=== PATIENT | female | born 1975 | race Two or more races ===

== ENCOUNTER 2017-11-16 12:29 | Observation (INO) | payer OTHER ==
[~2017-11-16] VITALS: Ht 165.1 cm; Wt 90.7 kg
[2017-11-16 13:07] LABS: Basophils # (auto) 0.1 uL; Basophils % (auto) 0.6 % (0.0-2.0); Eosinophils # (auto) 0.1 uL; Eosinophils % (auto) 0.7 % (0.0-7.0); Hematocrit 41.7 % (36.0-46.0); Hemoglobin 14.3 g/dL (12.2-16.2); Lymphocytes # (auto) 2.6 uL; Lymphocytes % (auto) 25.4 % (10.0-50.0); Mean Corpuscular Hemoglobin 31.6 pg (28.0-32.0); Mean Corpuscular Hgb Conc. 34.4 g/dL (32.0-36.0); Mean Corpuscular Volume 91.8 fL (80.0-100.0); Monocytes # (auto) 0.6 uL; Monocytes % (auto) 6.4 % (0.0-12.0); Neutrophils # (auto) 6.8 uL; Neutrophils % (auto) 66.9 % (37.0-80.0); Nucleated Red Blood Cells % 0.1 %; Platelet Count (auto) 203 10^3/uL (140-450); Red Blood Cells 4.54 10^6/uL (4.0-5.20); Red Cell Distribution Width 12.6 % (11.8-14.3); White Blood Cell 10.1 10^3/uL (4.4-10.8)
[2017-11-16 13:31] LABS: Bilirubin, Total 0.4 mg/dL (0.2-1.0); Calcium 8.8 mg/dL (8.5-10.1); Potassium 3.7 mmol/L (3.5-5.1); Total Protein 7.9 g/dL (6.4-8.2)
[2017-11-16] MEDS ORDERED: SODIUM CHLORIDE 0.9% 1,000 ML IVB ONE (13:53)
[2017-11-16 15:19] LABS: INR 0.93 (0.9-1.15); Partial Thromboplastin Time 23.6 sec (23.78-33.04)
[2017-11-16 15:36] LABS: Urine Bacteria NONE SEEN /hpf (None Seen); Urine Blood Negative /uL (Negative); Urine Specific Gravity 1.009 (1.001-1.035); Urine Sperm PRESENT /hpf (None Seen); Urine WBC 2 /hpf (0 - 5)
[2017-11-16 16:26] LABS: Alcohol, Urine < 3.0 mg/dL (0-5); Amphetamine Screen, Urine NEGATIVE (NEGATIVE); Barbiturate Scree,Urine NEGATIVE (NEGATIVE); Benzodiazephine Screen, Urine NEGATIVE (NEGATIVE); Cannabinoid Screen, Urine POSITIVE (NEGATIVE); Cocaine Screen, Urine NEGATIVE (NEGATIVE); Opiate Scree,Urine NEGATIVE (NEGATIVE); Phencyclidine Screen, Urine NEGATIVE (NEGATIVE)
[2017-11-16 18:22] VITALS: BP 113/70
== END 2017-11-16 18:32 | disposition home or self-care (01) | DRG 101 ==
LOC: ER 12:29 → OVERFLOW 12:30 → ER 18:32
PROVIDERS: ADMIT Family Medicine; ATTEND Family Medicine
DX: G40.909 Epilepsy, unspecified, not intractable, without status epilepticus (principal); Z82.49 Family history of ischemic heart disease and other diseases of the circulatory system
CPT/HCPCS: 36415; 71045; 80053; 80307; 81001; 81025; 82542; 83735; 85025; 85610; 85730; 99285; G0378

== ENCOUNTER 2018-06-14 23:20 | Emergency (ER) | payer OTHER ==
[~2018-06-14] VITALS: Ht 165.1 cm; Wt 90.7 kg
[2018-06-14 23:34] VITALS: BP 122/72
[2018-06-15] MEDS ORDERED: BACLOFEN 10 MG TAB PO ONE (00:30)
[2018-06-15] MEDS ORDERED: ACETAMINOPHEN/CODEINE#3 (300/30mg) TAB PO ONE (00:30)
[2018-06-15] MEDS ORDERED: methylPREDNISolone SOD SUCC 125 MG/2 ML VL IM ONE (00:30)
== END 2018-06-15 00:55 | disposition home or self-care (01) ==
LOC: ER 23:20
DX: M62.838 Other muscle spasm (principal); M54.2 Cervicalgia; G40.909 Epilepsy, unspecified, not intractable, without status epilepticus
CPT/HCPCS: 96372; 99283; J2930

== ENCOUNTER 2019-11-21 21:48 | Inpatient (IN) | payer OTHER ==
[~2019-11-21] VITALS: Ht 165.1 cm; Wt 100.2 kg
[2019-11-21] MEDS ORDERED: SODIUM CHLORIDE 0.9% 1,000 ML IV ONE (22:15)
[2019-11-21 22:36] LABS: Basophils # (auto) 0 10 ^3/uL (0-0.2); Basophils % (auto) 0.6 % (0.0-2.0); Eosinophils # (auto) 0 10 ^3/uL (0-0.8); Hemoglobin 15.8 g/dL (12.2-16.2); Lymphocytes # (auto) 1.1 10 ^3/uL (0.4-5.4); Lymphocytes % (auto) 29.5 % (10.0-50.0); Mean Corpuscular Hemoglobin 31.2 pg (28.0-32.0); Mean Corpuscular Hgb Conc. 33.6 g/dL (32.0-36.0); Mean Corpuscular Volume 92.7 fL (80.0-100.0); Monocytes # (auto) 0.3 10 ^3/uL (0-1.3); Monocytes % (auto) 8.2 % (0.0-12.0); Neutrophils # (auto) 2.4 10 ^3/uL (1.6-8.6); Neutrophils % (auto) 61.7 % (37.0-80.0); Nucleated Red Blood Cells % 0.4 %; Platelet Count (auto) 156 10^3/uL (140-450); Red Blood Cells 5.07 10^6/uL (4.0-5.20); Red Cell Distribution Width 13.1 % (11.8-14.3); White Blood Cell 3.9 10^3/uL (4.4-10.8)
[2019-11-21] MEDS ORDERED: ACETAMINOPHEN 325 MG TAB PO ONE ×2 (22:45→22:47)
[2019-11-21 22:57] LABS: Albumin 3.9 g/dL (3.4-5.0); BUN/Creatinine Ratio 10.4; Calcium 8.9 mg/dL (8.5-10.1); Potassium 4.8 mmol/L (3.5-5.1)
[2019-11-21 22:59] LABS: Bilirubin, Total 0.7 mg/dL (0.2-1.0); Total Protein 8.8 g/dL (6.4-8.2)
[2019-11-21 23:27] LABS: INR 0.95 (0.9-1.15); Partial Thromboplastin Time 24.1 sec (23.64-32.05)
[2019-11-22] MEDS ORDERED: IBUPROFEN 800 MG TAB PO ONE (00:30)
[2019-11-22] MEDS ORDERED: AZITHROMYCIN 500MG/ 250ML 250 ML IV ONE (01:15)
[2019-11-22] MEDS ORDERED: cefTRIAXone 1GM/50ML D5W 50 ML IV ONE (01:15)
[2019-11-22] MEDS ORDERED: MORPHINE SULF INJ 2 MG/ML SYRINGE 1ML IV PRN (02:00)
[2019-11-22] MEDS ORDERED: LORazepam 0.5 MG TAB PO PRN (02:00)
[2019-11-22] MEDS ORDERED: DOCUSATE SOD 100 MG CAP PO PRN (02:00)
[2019-11-22] MEDS ORDERED: ONDANSETRON HCL 4 MG/2 ML VIAL IV PRN (02:00)
[2019-11-22] MEDS ORDERED: TEMAZEPAM 15 MG CAP PO PRN (02:00)
[2019-11-22] MEDS: HYDROcodone-ACET 5/325MG TAB PO PRN ×4 (03:11→22:54)
[2019-11-22 04:15] VITALS: BP 110/61
--- NOTE | 2019-11-22 04:15 | NUR ---
Telemetry admit from [facility] admitted to Telemetry unit after SBAR received. Patient oriented to SARITA SUTTON RN primary RN, unit, room, bed, and unit policies regarding patient care and visiting hours. Patient placed on bedside oxygen at 1 liter via nasal cannula. Patient is now on continuous telemetry monitoring, tele box # 3 and telemetry reading on arrival to unit is sinus rhythm. Patient weighed by bedscale and encouraged to call if they need something. All questions and concerns addressed, patient verbalized understanding. Bed in lowest locked position, side rails up x2, call light within reach. Will round every hour and a needed and continue to monitor. COVID [address], will maintain. Addendum: 11/22/19 at 0505 by SARITA SUTTON RN RN ADDITION: Seizure precautions in place.
[2019-11-22] MEDS ORDERED: LAMO100T44 PO (05:06)
[2019-11-22] MEDS ORDERED: ALBUTEROL SULF HFA 90MCG INH 200DOSE IN SCH (06:00)
--- NOTE | 2019-11-22 06:15 | NUR ---
Unable to obtain ordered morning lab, lab technicians made aware. Will continue care.
--- NOTE | 2019-11-22 06:33 | NUR ---
Patient lying in bed, awake and alert. No s/s of distress. Bed in lowest locked position, side rails up x2, call light within reach. Will endorse care to dayshift RN.
[2019-11-22 08:59] VITALS: BP 107/66
[2019-11-22] MEDS: levETIRAcetam 500 MG TAB PO SCH ×2 (09:37→21:58)
[2019-11-22] MEDS: ZINC SULFATE 220mg CAP or TAB PO SCH (09:37)
[2019-11-22] MEDS: CHOLECALCIFEROL (VITD3) 1,000IU=25mCg TAB PO SCH (09:38)
[2019-11-22] MEDS: ASCORBIC ACID 1,000 MG TAB PO SCH (09:38)
[2019-11-22] MEDS: DOXYCYCLINE 100 MG TAB/CAP PO SCH ×2 (09:40→21:58)
[2019-11-22] MEDS ORDERED: ENOXAPARIN SOD 40 MG/0.4 ML SYRINGE SC SCH (10:00)
[2019-11-22 12:42] VITALS: BP 107/66
[2019-11-22 12:47] LABS: CRP High Sensitivity 2.61 mg/dL (< 0.3)
[2019-11-22 16:52] VITALS: BP 119/74
--- NOTE | 2019-11-22 17:52 | NUR ---
Patient reports back pain, headache with SOB, nausea and chills, temp 101.4, medicated for pain and fever, MD paged regarding discharge order.
[2019-11-22 22:00] VITALS: BP 109/68
[2019-11-23] MEDS: ACETAMINOPHEN 500 MG TAB PO PRN ×2 (04:28→13:58)
[2019-11-23 05:00] VITALS: BP 106/71
--- NOTE | 2019-11-23 06:20 | NUR ---
Temp Patient had elevated temp of 102, Tylenol PRN was given for temp >100.4. Temp reassessed 101.2. Patient was given ice packs and blankets were removed. Will continue to monitor.
--- NOTE | 2019-11-23 07:30 | NUR ---
Opening shift note Assumed care of patient from NOC RN. Patient is AOx4 no s/s of distress noted. Bed in in lowest locked position, side rails up x2, call light within reach. Updated patient on plan of care and patient verbalized understanding. Will continue to monitor q1hr and PRN.
[2019-11-23 08:24] LABS: Basophils # (auto) 0 10 ^3/uL (0-0.2); Basophils % (auto) 0.7 % (0.0-2.0); Eosinophils # (auto) 0 10 ^3/uL (0-0.8); Hematocrit 40.6 % (36.0-46.0); Hemoglobin 13.5 g/dL (12.2-16.2); Lymphocytes % (auto) 23.3 % (10.0-50.0); Mean Corpuscular Hemoglobin 30.7 pg (28.0-32.0); Mean Corpuscular Hgb Conc. 33.2 g/dL (32.0-36.0); Mean Corpuscular Volume 92.4 fL (80.0-100.0); Monocytes # (auto) 0.3 10 ^3/uL (0-1.3); Monocytes % (auto) 6.7 % (0.0-12.0); Neutrophils # (auto) 2.9 10 ^3/uL (1.6-8.6); Neutrophils % (auto) 69.3 % (37.0-80.0); Nucleated Red Blood Cells % 0.1 %; Platelet Count (auto) 139 10^3/uL (140-450); Red Blood Cells 4.39 10^6/uL (4.0-5.20); Red Cell Distribution Width 13.1 % (11.8-14.3); White Blood Cell 4.2 10^3/uL (4.4-10.8)
[2019-11-23 08:38] LABS: Albumin 3.2 g/dL (3.4-5.0); Calcium 8.5 mg/dL (8.5-10.1); Potassium 3.2 mmol/L (3.5-5.1)
[2019-11-23 08:41] VITALS: BP 106/71
[2019-11-23 08:42] LABS: BUN/Creatinine Ratio 8.8; Bilirubin, Total 0.3 mg/dL (0.2-1.0); Total Protein 7.1 g/dL (6.4-8.2)
[2019-11-23] MEDS: ZINC SULFATE 220mg CAP or TAB PO SCH (09:22)
[2019-11-23] MEDS: levETIRAcetam 500 MG TAB PO SCH ×2 (09:23→09:48)
[2019-11-23] MEDS: DOXYCYCLINE 100 MG TAB/CAP PO SCH (09:23)
[2019-11-23] MEDS: ASCORBIC ACID 1,000 MG TAB PO SCH (09:24)
[2019-11-23] MEDS: CHOLECALCIFEROL (VITD3) 1,000IU=25mCg TAB PO SCH (09:24)
--- NOTE | 2019-11-23 09:26 | NUR ---
Patient refused medication Patient refusing keppra, patient stated " I do not take keppra. My doctor said not to take it anymore." Educated patient on risks of refusal, patient verbalized understanding. Will continue care.
--- NOTE | 2019-11-23 11:33 | NUR ---
Physician rounding Dr. Galindo at bedside, updated MD on patient status. New orders received, will follow through and will continue to monitor.
[2019-11-23 13:00] VITALS: BP 117/76
--- NOTE | 2019-11-23 13:58 | NUR ---
PAIN Patient complaint of 7/10 headache, requesting Tylenol for the pain. Will continue to monitor q1hr and PRN.
[2019-11-23 15:27] VITALS: BP 117/76
--- NOTE | 2019-11-23 16:45 | NUR ---
Discharge note Discharge instructions given as ordered. Encourage to follow up with PMD as instructed. All questions and concerns addressed. Patient verbalized understanding. IV removed with catheter intact, pressure dressing applied. Telemetry unit returned to ICU. Patient taken to vehicle via wheelchair with all personal belongings, accompanied by staff. No distress noted at time of departure.
== END 2019-11-23 16:45 | disposition home or self-care (01) | DRG 177 ==
LOC: ER 21:48 → TELE 21:49 → TELE-EAST 11-22 04:15
PROVIDERS: ADMIT Hospitalist; ATTEND Internal Medicine
DX: U07.1 COVID-19 (principal); J12.89 Other viral pneumonia; E66.01 Morbid (severe) obesity due to excess calories; R56.9 Unspecified convulsions
CPT/HCPCS: 36415; 71045; 80053; 82728; 83605; 83615; 83735; 84443; 84702; 85025; 85379; 85610; 85652; 85730; 86141; 87040; 87070; 87804; 87880; G0378; J0696; J2405

== ENCOUNTER 2019-12-08 16:09 | Emergency (ER) | payer OTHER ==
[~2019-12-08] VITALS: Ht 162.6 cm; Wt 96.2 kg
[~2019-12-08 16:09] MED LIST: LAMO100T44 PO
[2019-12-08 17:29] LABS: Basophils # (auto) 0.1 10 ^3/uL (0-0.2); Basophils % (auto) 0.9 % (0.0-2.0); Eosinophils # (auto) 0.1 10 ^3/uL (0-0.8); Eosinophils % (auto) 1.1 % (0.0-7.0); Hematocrit 40.2 % (36.0-46.0); Hemoglobin 13.2 g/dL (12.2-16.2); Lymphocytes # (auto) 1.8 10 ^3/uL (0.4-5.4); Lymphocytes % (auto) 25.4 % (10.0-50.0); Mean Corpuscular Hemoglobin 30.6 pg (28.0-32.0); Mean Corpuscular Hgb Conc. 32.9 g/dL (32.0-36.0); Monocytes # (auto) 0.6 10 ^3/uL (0-1.3); Monocytes % (auto) 8.7 % (0.0-12.0); Neutrophils # (auto) 4.5 10 ^3/uL (1.6-8.6); Neutrophils % (auto) 63.9 % (37.0-80.0); Nucleated Red Blood Cells % 0.1 %; Platelet Count (auto) 301 10^3/uL (140-450); Red Blood Cells 4.32 10^6/uL (4.0-5.20); Red Cell Distribution Width 13.8 % (11.8-14.3)
[2019-12-08] MEDS ORDERED: IOHEXOL 350 MG/ML 100ML IJ ONE (17:33)
[2019-12-08 17:42] LABS: Albumin 3.6 g/dL (3.4-5.0); BUN/Creatinine Ratio 13.2; Calcium 8.6 mg/dL (8.5-10.1)
[2019-12-08 17:45] LABS: Bilirubin, Total 0.4 mg/dL (0.2-1.0); Total Protein 7.8 g/dL (6.4-8.2)
[2019-12-08 18:21] VITALS: BP 132/89
== END 2019-12-08 19:17 | disposition home or self-care (01) ==
LOC: ER 16:09
DX: U07.1 COVID-19 (principal); J18.9 Pneumonia, unspecified organism; F12.10 Cannabis abuse, uncomplicated
CPT/HCPCS: 36415; 71045; 71275; 80053; 85025; 85379; 93005; 99285; Q9967

== ENCOUNTER → 2022-07-11 | Outpatient (CLI) | payer OTHER ==
[~2022-07-11] MED LIST changes: +IOHEXOL 350 MG/ML 100ML IJ ONE
[2022-07-11 13:05] VITALS: BP 128/70
[2022-07-11 13:23] VITALS: BP 128/85
== END | disposition home or self-care (01) ==
LOC: Rad HDHVI 12:58
PROVIDERS: ATTEND Internal Medicine Cardiovascular Disease
DX: R91.1 Solitary pulmonary nodule (principal); R06.02 Shortness of breath; R07.89 Other chest pain; M47.814 Spondylosis without myelopathy or radiculopathy, thoracic region
CPT/HCPCS: 71275; G0463; Q9967

== ENCOUNTER → 2022-07-20 | Outpatient (CLI) | payer OTHER ==
[~2022-07-20] MED LIST changes: -IOHEXOL 350 MG/ML 100ML IJ ONE
== END | disposition home or self-care (01) ==
LOC: Rad HDHVI 14:48
PROVIDERS: ATTEND Internal Medicine Cardiovascular Disease
DX: I10 Essential (primary) hypertension (principal); R00.2 Palpitations
CPT/HCPCS: 93306